=== PATIENT | male | born 1975 | race Caucasian/White ===

== ENCOUNTER 2016-09-30 18:15 | Inpatient (IN) | payer OTHER ==
[~2016-09-30] VITALS: Ht 180.3 cm; Wt 89.5 kg
--- NOTE | ~2016-09-30 | HP ---
PATIENT'S NAME: EVELIN CHIU [facility] AGE: 41 Y [address] ROOM: [place] [address] [place] [facility] [place]: 09/30/2016 History & Physical DISCHARGE DATE: FAMILY PHYSICIAN: Edu Perez MD ATTENDING PHYSICIAN: Eyal Anderson DATE OF SERVICE: CHIEF COMPLAINT: Obstructive jaundice. HISTORY OF PRESENT ILLNESS: This 41-year-old white male with previous history of antiphospholipid antibody syndrome with recurrent DVTs on long-term anticoagulation with warfarin came to the emergency department this evening with diffuse abdominal pain and epigastric pain of 5-6 days duration. He recently traveled to [place] on business. While he was in the motel, he noticed that he was experiencing quite a bit of epigastric distress and "heartburn." This progressed to diffuse abdominal pain and has persisted over the course of the last 4-5 days. He has had some nausea intermittently and did vomit earlier today. He states that he initially thought that it was just reflux, but because the symptoms were persistent, he decided to come to the emergency room for definitive evaluation and management. He has had some chills intermittently, but denies noticing any fever. He admits that he has not actually taken his temperature. He denies omega chest pain, no significant shortness of breath; although, it does hurt in his abdomen when he takes a deep breath. No congestion or cough. He has been stooling normally and stooled last yesterday. No blood in his stools or black tarry stools. No urinary complaints. Denies dysuria, frequency, urgency, or hematuria; although, he has noticed that his urine has become bright yellow in color. He has not noticed any body rash. No numbness, tingling, or weakness in his extremities or any other associated physical or constitutional complaints. ALLERGIES: NO KNOWN DRUG ALLERGIES. ILLNESSES: Antiphospholipid antibody with recurrent DVTs on long-term anticoagulation with warfarin. CURRENT MEDICATIONS: Warfarin 7.5 mg Monday through Monday and 10 mg every Monday and Monday. PATIENT'S NAME: EVELIN CHIU [facility] AGE: 41 Y [address] ROOM: [place] [address] [place] [facility] [place]: 09/30/2016 History & Physical DISCHARGE DATE: FAMILY PHYSICIAN: Edu Perez MD ATTENDING PHYSICIAN: Eyal Anderson FAMILY HISTORY: Negative for heart attack or stroke. SOCIAL HISTORY: He is and lives here in [place]. He works at [employer]. He is a nonsmoker and rarely drinks alcohol. REVIEW OF SYSTEMS: As per HPI. All other organ systems reviewed and are negative. OBJECTIVE: VITAL SIGNS: Temperature 98.6, pulse is 60, respirations 16, and blood pressure 146/87. GENERAL: He is a very pleasant, cooperative, lying in bed, in no acute distress. SKIN: Supple, slightly sallow, warm, dry, no obvious rashes. HEENT: Otherwise, normocephalic. Sclerae mildly icteric. Pupils equal, round, and reactive to light and accommodation. Extraocular movements appear intact. Nasal turbinates normal in appearance. Oropharynx mucous membranes are pink and moist. NECK: Supple. No masses or adenopathy. No thyromegaly. No JVD. CHEST: Chest wall is symmetrical. HEART: Regular without murmurs. LUNGS: Clear bilaterally. No wheezes or crackles are heard. ABDOMEN: Soft and flat. Diffusely tender with some guarding across the midepigastrium. No masses or hepatosplenomegaly. Bowel sounds are present. AND RECTAL: Not done. EXTREMITIES: Display no clubbing, cyanosis, or edema. NEUROLOGICAL: No focal deficits. LABORATORY AND X-RAY DATA: CBC showed a white blood cell count of 7.6, hemoglobin is 15.0, hematocrit 42.7, and platelets 246. Chemistries reveal BUN and creatinine 9 and 0.9 respectively; sodium and potassium 139 and 3.6; chloride and CO2 are 104 and 26; calcium is 8.5; glucose was 122; AST and ALT 215 and 307 respectively; bilirubin is 3.5. PT/PTT 14.7 and 48 with an INR of 1.4. Urinalysis is remarkable only for 2-5 rbcs, rare wbcs. Amylase and lipase were 21 and 152 respectively. Cardiac enzymes reveal troponin I negative at less than 0.04. CT scan of the abdomen and pelvis revealed some gallbladder wall thickening and findings consistent with gallbladder sludge. Final report pending. Ultrasound of the abdomen and gallbladder confirmed these findings. No comment on gallbladder stones, but final report pending at the time of this dictation. PATIENT'S NAME: EVELIN CHIU [facility] AGE: 41 Y [address] ROOM: [id number] [place], [place] [address] [place] [facility] [place]: 09/30/2016 History & Physical DISCHARGE DATE: FAMILY PHYSICIAN: Edu Perez MD ATTENDING PHYSICIAN: Eyal Anderson ASSESSMENT AND PLAN: 1. Obstructive jaundice. We will admit to inpatient care. We will initiate some supportive cares including intravenous fluids and symptomatic treatment with Zofran for relief of nausea and fentanyl for relief of pain. Radiographic imaging studies do not clearly identify evidence of infection and he is not clearly septic. We will get blood cultures and lactate and follow up on those when the results are known. We will hold off on any antibiotic therapy for now. We will keep him n.p.o. I did discuss the case with Dr. Cesar Fajardo, General Surgery, who will see the patient as well. We will stop warfarin in anticipation of possible gallbladder surgery within the next 24 to 48 hours. Depending on his enzyme and bilirubin trend, we will consider the possibility of Gastroenterology consultation for ERCP as well. 2. Deep vein thrombosis, recurrent with history of antiphospholipid antibody, historically stable on long-term anticoagulation with Coumadin. He is a little subtherapeutic. I discussed this with Dr. Fajardo who requested to reverse him in anticipation of possible surgery. We will hold off on heparinization for now as well. We will give vitamin K 10 mg subcutaneous tonight and repeat a PT/INR in the morning. 3. Deep venous thrombosis prophylaxis. We will utilize serial compression devices while he is in bed and mobilize him as he is physically able. MD LISETTE TRAN/david /[id number] D: [id number] T: 014 HISTORY & PHYSICAL
--- NOTE | ~2016-09-30 | DS ---
PATIENT'S NAME: EVELIN CHIU [facility] AGE: 41 Y [address] ROOM: [facility] [place] [place], [place] [address] LOCATION: [facility] [place] ADMIT DATE: 09/30/2016 Discharge Summary DISCHARGE DATE: 10/02/2016 FAMILY PHYSICIAN: Edu Perez MD ATTENDING PHYSICIAN: Eyal Anderson PRINCIPAL DIAGNOSIS: Acute cholecystitis, status post laparoscopic cholecystectomy and intraoperative cholangiogram. SECONDARY DIAGNOSIS: Antiphospholipid syndrome, on long-term anticoagulation. HOSPITAL COURSE: A 41-year-old gentleman with a past medical history of antiphospholipid syndrome, on long-term Coumadin, was admitted to the hospital with acute abdominal pain. A CAT scan as well as liver ultrasound was obtained, which did show acute cholecystitis without any evidence of CBD dilatation. He was taken to the OR by General Surgery for laparoscopic cholecystectomy and intraoperative cholangiogram which went uneventful. He recovered well during the course of the hospitalization. We interrupted his Coumadin for 2 days. On the day of the discharge, his hemodynamics as well as lab work was improving. He was given 1 shot of Lovenox 1.5 mg/kg. He was advised to take 10 mg of Coumadin today as well as 10 mg of Coumadin tomorrow. He is supposed to follow up with Dr. Perez on 10/04/2016, with INR as well as CBC. DISCHARGE MEDICATION: Discharge medications include: 1. Coumadin, dosing as per home dose. 2. [place] q.6 hours p.r.n. for pain. ACTIVITY: Encouraged ambulation. DIET: As tolerated. FOLLOWUP: Follow up with Dr. Perez in 2 days on 10/04/2016 with INR. MD HECTOR NOONAN/david /[id number] d: 10/03/16 0021 t: 10/09/161955, DISCHARGE SUMMARY
--- NOTE | ~2016-09-30 | ER ---
PATIENT'S NAME: EVELIN CHIU [facility] AGE: 41 Y [address] ROOM: [address] [address] LOCATION: [facility] [place] ADMIT DATE: 09/30/2016 ER/Outpatient Report DISCHARGE DATE: FAMILY PHYSICIAN: Edu Perez MD ATTENDING PHYSICIAN: Eyal Anderson Time of Arrival: 1817 hours. Time of Evaluation: 1817 hours. CHIEF COMPLAINT: Epigastric discomfort, general abdominal pain. HISTORY OF PRESENT ILLNESS: The patient states he has not felt well for the past week, has been gone traveling for work. States he got home tonight and just felt like the pain was getting worse. He did vomit x1 this morning, did not have any blood in it. He feels weak. Does feel short of breath when the pain becomes more intense. He has not been diaphoretic. He has not been dizzy or lightheaded. He describes the pain as being 5/10 at this time. States he is reluctant to eat anything because it really sets the pain off. He states it just causes his stomach to really churn. Denies ever having any pain like this before. His has a history of GERD. She did send some Nexium with him on his trip and he has been taking Nexium daily the past week, but does not feel as though it has really helped the pain. ALLERGIES: NO KNOWN ALLERGIES. CURRENT MEDICATIONS: Nexium that he has been taking as well as Coumadin. PAST MEDICAL HISTORY: Recurrent DVTs. PAST SURGERIES: Negative. SOCIAL HISTORY: He lives at home with his and child. Denies use of tobacco, drugs, or alcohol on a regular basis. REVIEW OF SYSTEMS: All negative other than those mentioned in the HPI. PHYSICAL EXAMINATION: PATIENT'S NAME: EVELIN CHIU [facility] AGE: 41 Y [address] ROOM: [address] [address] LOCATION: [facility] [place] ADMIT DATE: 09/30/2016 ER/Outpatient Report DISCHARGE DATE: FAMILY PHYSICIAN: Edu Perez MD ATTENDING PHYSICIAN: Eyal Anderson VITAL SIGNS: He states he is 71 inches, weight was 90.4 kg, blood pressure was 163/94, pulse was 77, respirations 16, temperature of 98 tympanic, and O2 saturation was 97% on room air. [place] Coma Scale is 15. Monitor showing a sinus rhythm. GENERAL: The patient is awake, alert, and oriented x4. SKIN: [place], warm, and dry. RESPIRATIONS: Even and nonlabored. Lung sounds are clear throughout. HEART: Regular rate and rhythm. ABDOMEN: Soft. Nondistended. Bowel sounds are present. EXTREMITIES: No signs of peripheral edema. Moves all extremities strongly and equally. Walked in with a steady even gait. EKG was completed, it showed a sinus rhythm. Saline lock was initiated with fluids of normal saline started. He was given Zofran 4 mg IV. Lab work was drawn. CBC shows a white count of 7.6. His PTT was 48 with a PT of 14.7 and an INR of 1.4. Chem panel: Sodium is 139, potassium is 3.6, and chloride is 104. His total bilirubin is elevated at 3.5, alkaline phosphatase is 187, AST is 215, and ALT is 307. Cardiac enzymes are normal, amylase was 21 and lipase was 152. He was able to ambulate to the bathroom and give us a clean-catch urine sample, is negative for leukocytes and nitrites, positive for blood. CT scan of the abdomen was completed. Radiologist shows there is thickening of the gallbladder, but unable to determine if there are stones. He recommends getting an ultrasound. Otherwise, the CAT scan is within normal limits. We did ultrasound of the gallbladder. donor support technician reports that the patient has a thick wall of 7 mm, the gallbladder is full of sludge, one area of the wall does potentially show some calcification, there is no duct dilatation. I did call and talk with Dr. Fajardo. He feels the patient needs to be admitted at this time for observation to watch the liver enzymes, make sure that they improve, to determine if he can have his gallbladder out or needs to be evaluated by the GI specialist. I did call and talk with Dr. Anderson and he agrees to admit the patient. IMPRESSION: Cholecystitis with liver function test elevated. PLAN: The patient will be placed in observation on the Med/Surg Unit floor by Dr. Anderson and with consult Dr. Fajardo. The patient and his are aware of plan of care. GABRIELLE WILL APRN FOR CHAR GARCIA MD PATIENT'S NAME: EVELIN CHIU [facility] AGE: 41 Y [address] ROOM: [place] [address] LOCATION: [facility] [place] ADMIT DATE: 09/30/2016 ER/Outpatient Report DISCHARGE DATE: FAMILY PHYSICIAN: Edu Perez MD ATTENDING PHYSICIAN: Eyal Anderson/david /[id number] d: 10/01/16 0156 t: 10/04/16 1835, OUTPATIENT REPORT
--- NOTE | ~2016-09-30 | OR ---
PATIENT'S NAME: EVELIN CHIU [facility] AGE: 41 Y [address] ROOM: [address] [address] LOCATION: [place] ADMIT DATE: 09/30/2016 OR/Procedure Report DISCHARGE DATE: FAMILY PHYSICIAN: Edu Perez MD ATTENDING PHYSICIAN: Eyal Anderson SURGEON: Cesar Hollingsworth MD [employer]ID[employer]LIST SALES CONSULTANT: DATE OF PROCEDURE: 09/30/2016 PREOPERATIVE DIAGNOSIS: Cholecystitis. POSTOPERATIVE DIAGNOSIS: Cholecystitis. PROCEDURE PERFORMED: Laparoscopic cholecystectomy with intraoperative cholangiogram. FINDINGS: On initial intraoperative cholangiogram, there appeared to be a filling defect. This persisted. However, with aggressive flushing, it appeared as though this area cleared. A balloon sweep was also performed, and final cholangiogram revealed no filling defects. ESTIMATED BLOOD LOSS: Less than 50 mL. COMPLICATIONS: None. INDICATIONS: The patient is a 41-year-old male who presented with abdominal pain. He was found to have cholecystitis. We discussed cholecystectomy with the patient; the risks, benefits, and alternatives, and he elected to proceed. DESCRIPTION OF PROCEDURE: The patient was taken into the operating room. He was placed supine, given IV sedation, and subsequently intubated. His abdomen was prepped with ChloraPrep and sterilely draped. Local anesthetic was infiltrated superior to the umbilicus. A transverse incision was created. The abdomen was elevated. A Veress needle was inserted. Pneumoperitoneum was induced. Following this, a 5 mm trocar was inserted, followed by insertion of the camera. There was no injury from initial trocar placement. Three more trocars were then positioned; an 11 mm epigastric, and two 5 mm right subcostal ports. Skin overlying the peritoneum was first anesthetized prior to making these incisions. All 3 of these trocars were inserted under direct visualization. The gallbladder was noted to be very edematous and distended. It was grasped. Upon grasping it, dark bile as well as a few small stones also spilled. We were able to control this with replacement of the grasper. The small stones and bile were suctioned from the abdominal cavity. The infundibulum was then grasped and retracted inferiorly and laterally. There was significant amount of edema in the triangle, making this dissection more PATIENT'S NAME: EVELIN CHIU [facility] AGE: 41 Y [address] ROOM: [id number] [place], [place] [address] LOCATION: [place] ADMIT DATE: 09/30/2016 OR/Procedure Report DISCHARGE DATE: FAMILY PHYSICIAN: Edu Perez MD ATTENDING PHYSICIAN: Eyal Anderson. Ultimately, we were able to dissect around the cystic duct. This was clipped near the gallbladder and partially transected. A cholangiogram was able to be obtained. On initial cholangiogram images, there appeared to be a small filling defect; however, we thought potentially this was air. However, with manipulation of the patient and catheter, this area persisted. We advanced the balloon into the common bile duct more forcefully, placed saline followed by contrast, and then deflated the balloon. We then withdrew the catheter back to the cystic duct. A cholangiogram was able to be obtained. A filling defect was not able to be seen after this with free flow of contrast into right and left hepatic ducts as well as into the duodenum. It was not clear whether this was a stone that we were able to flush or whether this was only an air bubble, although I suspect this was a small stone. A balloon sweep of the common bile duct was performed. No stones were removed. Cholangiogram was again obtained, and still no filling defect. The cystic duct was then doubly clipped and divided. The cystic artery was also isolated, doubly clipped, and divided. The gallbladder was then removed from the liver bed using electrocautery. This was placed in an EndoCatch bag and brought out through the epigastric port site. Again, this was very edematous and thick walled, consistent with acute cholecystitis. The operative field was then inspected. It appeared hemostatic. Clips appeared to be in good position on both the cystic duct and artery. The area was then irrigated. Fluid was removed. The pneumoperitoneum was released. The trocars were removed. The trocar sites appeared hemostatic. The fascia of the epigastric port site was approximated with 0 Vicryl suture, followed by skin closure of all 4 port sites with 4-0 Monocryl sutures. Steri-Strips and sterile dressings were placed. The patient was extubated and sent to Recovery in good condition. CESAR J MD TAN HOLLINGSWORTH/modl /[id number] d: 10/01/16 1559 t: 10/12/16 1658, OPERATIVE SUMMARY
--- NOTE | ~2016-09-30 | CON ---
PATIENT'S NAME: EVELIN CHIU [facility] AGE: 41 Y [address] ROOM: [place] [address] [place] [facility] [place]: 09/30/2016 Consultation DISCHARGE DATE: FAMILY PHYSICIAN: Edu Perez MD ATTENDING PHYSICIAN: Eyal Anderson REFERRING PHYSICIAN: Cesar Fajardo MD CHIEF COMPLAINT: Abdominal pain. HISTORY OF PRESENT ILLNESS: The patient is a 41-year-old male who was admitted to the hospital with elevated bilirubin and abdominal pain. He said his abdominal pain has been present for 5 to 6 days. He had an episode a couple of weeks ago where he had severe pain. He said this went away, but has not really felt well since. He says he feels somewhat ill after he eats. Describes heartburn-type symptoms. Approximately 5 days ago, he had severe pain in the right upper quadrant, nausea, and did vomit. When he was seen in the emergency room, he was found to have right upper quadrant pain and a bilirubin of 3.5. He ultimately had a CT scan that revealed a thickened gallbladder wall. Ultrasound also confirmed this. There was sludge versus tiny stones in the gallbladder. No common bile duct dilatation was present. He was admitted to the hospital. Continues to have abdominal pain. However, his bilirubin did fall to 1.8. ALLERGIES: NONE. ILLNESSES: Antiphospholipid antibody, history of recurrent DVTs. CURRENT MEDICATIONS: Coumadin. FAMILY HISTORY: No family history of any cancer or heart disease. SOCIAL HISTORY: . He does not smoke. Drinks on rare occasion. REVIEW OF SYSTEMS: All negative. He denies any headache or vision changes. No asthma or emphysema. No shortness of breath. No melena. No hematochezia. No hematuria or dysuria. No diabetes. No history of hypertension. Full review of systems is negative. PHYSICAL EXAMINATION: PATIENT'S NAME: EVELIN CHIU [facility] AGE: 41 Y [address] ROOM: [place] [address] [place] [facility]: 09/30/2016 Consultation DISCHARGE DATE: FAMILY PHYSICIAN: Edu Perez MD ATTENDING PHYSICIAN: Eyal Anderson GENERAL: A pleasant, cooperative, 41-year-old male who is mildly uncomfortable. HEENT: Head is normocephalic and atraumatic. Eyes are anicteric. NECK: Without lymphadenopathy. HEART: Regular rate and rhythm. No murmurs audible. LUNGS: Clear to auscultation bilaterally. ABDOMEN: Soft. He does have tenderness to palpation in the right upper quadrant and epigastrium. No masses are palpable. EXTREMITIES: Warm. No edema. NEUROLOGIC: Gross motor is intact. LABORATORY DATA: Labs were reviewed. ASSESSMENT: Acute cholecystitis. PLAN: Discussed the findings with the patient. He is off his Coumadin. His INR is subtherapeutic. We discussed with him waiting another day to have his INR drop further versus surgery. Discussed slight increased risk of bleeding, although he is subtherapeutic. He has had vitamin K. We discussed surgery and risks of surgery which include bleeding, infection, bile leak, bile duct injury, injury to other viscera, as well as ongoing symptomatology. We discussed the potential for chronic diarrhea. He understands the risks of surgery and would like to proceed. I will repeat his INR prior to surgical intervention. CESAR MD TAN SUN/david /[id number] d: 10/01/16 1332 t: 10/01/16 1455, CONSULTATION REPORT
[2016-09-30 18:38] LABS: BASOPHIL % 0.4 %; EOSINOPHIL # 0.2 K/uL (0.0-0.5); EOSINOPHIL % 3.2 %; HEMATOCRIT 42.7 % (37.0-53.0); IMMATURE GRANULOCYTE % 0.4 %; MCH 28.5 pg (27.0-34.0); MCHC 35.1 gm/dL (32.0-36.5); MCV 81.2 fl (83.0-98.0); MONOCYTE # 0.7 K/uL (0.0-1.0); MONOCYTE % 8.6 %; MPV 10.6 fl (9.4-12.4); NEUTROPHIL # (ANC) 5.6 K/uL (1.4-9.0); NEUTROPHIL % 74.4 %; NRBC % 0 /100WBC (0-0.00); PLATELET COUNT 246 K/uL (150-450); RBC 5.26 M/uL (4.00-6.00); WBC 7.6 K/uL (4.0-11.0)
[2016-09-30 18:47] LABS: PROTIME 14.7 SECONDS (9.8-11.4); PTT 48 SECONDS (25-32)
[2016-09-30 18:57] LABS: ALBUMIN 4.2 gm/dL (3.5-5.0); ALK PHOS 187 IU/L (33-138); ALT 307 IU/L (12-78); ANION GAP 12.6 (10.0-19.0); AST 215 IU/L (10-40); BLOOD UREA NITROGEN 9 mg/dL (6-24); CALCIUM 8.5 mg/dL (8.5-10.5); CHLORIDE 104 mMol/L (96-110); CO2 26 mMol/L (22-32); CPK 115 IU/L (35-332); CREATININE 0.9 mg/dL (0.6-1.3); ESTIMATED GFR (MDRD EQUATION) > 60; MAGNESIUM 2.2 mg/dL (1.3-2.6); POTASSIUM 3.6 mMol/L (3.7-5.1); SODIUM 139 mMol/L (135-145); TOTAL BILIRUBIN 3.5 mg/dL (0.0-1.5)
[2016-09-30 19:22] LABS: BILIRUBIN URINE NEGATIVE (NEGATIVE); BLOOD URINE 50 /UL (NEGATIVE); COLOR URINE YELLOW (YELLOW); GLUCOSE URINE NEGATIVE (NEGATIVE); KETONE URINE NEGATIVE (NEGATIVE); LEUKOCYTES URINE NEGATIVE /UL (NEGATIVE); NITRITE URINE NEGATIVE (NEGATIVE); PROTEIN URINE NEGATIVE (NEGATIVE); TURBIDITY URINE CLEAR (CLEAR); UROBILINOGEN URINE 1 mg/dL (NORMAL)
[2016-09-30 19:28] LABS: BACTERIA URINE RARE (NEGATIVE); EPITHELIAL URINE 0-2 #/HPF (NEGATIVE); WBC URINE RARE #/HPF (NEGATIVE)
[2016-09-30] MEDS ORDERED: COUMADIN ** IA5 MG PO ×2 (22:29→22:30)
--- NOTE | 2016-10-01 00:57 | NUR ---
Pt came to ER on 09/30/16, complaining of abdominal pain, chest discomfort, and indigestion. ER worked pt up for possible cardiac issues; however, all cardiac markers were negative. When drawing LFT's, bilirubin, alkaline phosphate, AST, and ALT were all elevated. Pt was admitted with obstructive jaundice. Pt arrived on floor at 2220 and all vital signs were stable. Pt has history of DVT's and on chronic coumadin; however, pt did not take coumadin that day. No complaints of nausea were present upon arrival. Dr. Fajardo was consulted in ER and hospitalist admitted. Plan is to stop coumadin currently, make pt NPO, except sips with meds and ice chips, and continue monitoring of LFT's.
--- NOTE | 2016-10-01 04:40 | NUR ---
Significant Event: Pt A&Ox3. VS stable, RA. Has hx of DVT's and on chronic coumadin. Holding coumadin currently, gave SQ vit K last night. To have PT/INR draw @ 0800. Consulted surgery d/t elevated LFT's. NPO except sips with meds and ice chips ok. PIV in Rt hand, NS @ 100. Did get BCx2 last night. Pain associated with upper abdominal area that radiates down to groin. Has Fent 25-50mcg q3; gave last night with good results. Up ad lee, ind. SCD's. Follow up: Monitor LFT's. Surgery to see. Continue with plan of care.
[2016-10-01 05:22] LABS: BASOPHIL % 0.3 %; EOSINOPHIL # 0.3 K/uL (0.0-0.5); EOSINOPHIL % 5.2 %; HEMATOCRIT 41.2 % (37.0-53.0); HEMOGLOBIN 14.1 g/dL (12.0-17.0); IMMATURE GRANULOCYTE % 0.6 %; LYMPHOCYTE % 15.5 %; MCH 28.7 pg (27.0-34.0); MCHC 34.2 gm/dL (32.0-36.5); MCV 83.9 fl (83.0-98.0); MONOCYTE # 0.7 K/uL (0.0-1.0); MONOCYTE % 10.9 %; MPV 10.8 fl (9.4-12.4); NEUTROPHIL # (ANC) 4.3 K/uL (1.4-9.0); NEUTROPHIL % 67.5 %; NRBC % 0 /100WBC (0-0.00); PLATELET COUNT 200 K/uL (150-450); RBC 4.91 M/uL (4.00-6.00); RDW-CV 13.3 % (11.9-14.6); WBC 6.3 K/uL (4.0-11.0)
[2016-10-01 05:39] LABS: ALBUMIN 3.6 gm/dL (3.5-5.0); ALK PHOS 175 IU/L (33-138); ALT 266 IU/L (12-78); ANION GAP 7.5 (10.0-19.0); AST 134 IU/L (10-40); BLOOD UREA NITROGEN 8 mg/dL (6-24); CALCIUM 8.2 mg/dL (8.5-10.5); CHLORIDE 107 mMol/L (96-110); CO2 32 mMol/L (22-32); ESTIMATED GFR (MDRD EQUATION) > 60; POTASSIUM 4.5 mMol/L (3.7-5.1); SODIUM 142 mMol/L (135-145); TOTAL PROTEIN 6.9 g/dL (6.0-8.4)
[2016-10-01 05:40] LABS: TOTAL BILIRUBIN 1.8 mg/dL (0.0-1.5)
[2016-10-01 08:11] LABS: INR - (THERAPEUTIC) 1.4 (0.92-1.07); PROTIME 14.7 SECONDS (9.8-11.4)
--- NOTE | 2016-10-01 15:08 | NUR ---
Significant Event: CARED FOR PT FROM 06-1500. PT WENT TO OR FROM [id number]. PT HAS 4 LAP SITES. THE UPPER MIDLINE DRSG HAS PINKISH RED DRAINAGE, THE OTHER 3 ARE DRY AND INTACT. IV INFUSING INTO RIGHT HAND. SCD'S ON. PT HAS A HX OF BLOOD CLOTS. VSS, AFEBRILE.
--- NOTE | 2016-10-01 16:07 | NUR ---
D: Assumed care of patient at 1500. Patient vital signs stable patient afebrile. Patient tolerating clear liquids denies any nausea. Patient up in baig; completed 2 laps tolerated excellent. [place] given last at 1315, motrin at 1500. Dressings to abdomen upper mid saturated, umbilicus small new drainage, other two dry and intact.
--- NOTE | 2016-10-02 01:22 | NUR ---
SIGNIFICANT EVENT: Patient alert & oriented. VSS on RA. Ad lee in room. No pain meds this shift, rates pain at 5 but refuses meds. Clear liquids, advance as karine. Ambulate x1 with family in [place]. Pleasant and cooperative with cares.
[2016-10-02 06:05] LABS: ALBUMIN 3.3 gm/dL (3.5-5.0); ALK PHOS 154 IU/L (33-138); ALT 203 IU/L (12-78); ANION GAP 11.1 (10.0-19.0); AST 69 IU/L (10-40); BLOOD UREA NITROGEN 11 mg/dL (6-24); CALCIUM 8.2 mg/dL (8.5-10.5); CHLORIDE 105 mMol/L (96-110); CO2 29 mMol/L (22-32); CREATININE 0.9 mg/dL (0.6-1.3); ESTIMATED GFR (MDRD EQUATION) > 60; POTASSIUM 4.1 mMol/L (3.7-5.1); SODIUM 141 mMol/L (135-145); TOTAL BILIRUBIN 0.8 mg/dL (0.0-1.5); TOTAL PROTEIN 6.5 g/dL (6.0-8.4)
[2016-10-02] MEDS ORDERED: NORCO 5-325 TA1 EACH PO (09:02)
== END 2016-10-02 13:15 | disposition disaster alternative care site (69) | DRG 411 ==
LOC: GMED 18:15 → GMSU 21:18
PROVIDERS: Emergency Medicine; Nurse Practitioner Family; Surgery; ADMIT Family Medicine
DX: K81.0 Acute cholecystitis (principal); K83.1 Obstruction of bile duct; D68.61 Antiphospholipid syndrome; Z86.718 Personal history of other venous thrombosis and embolism; Z79.01 Long term (current) use of anticoagulants; K82.8 Other specified diseases of gallbladder
CPT/HCPCS: J0694; J1100; J1650; J2250; J2405; J3010; J7030; Q9967